=== PATIENT | male | born 1960 | race Caucasian/White ===

== ENCOUNTER 2016-05-19 15:55 | Inpatient (IN) | payer OTHER ==
[2016-05-19] MEDS ORDERED: Diltiazem DRIP* 100 MG/100 ML ADDV.BAG IVPB ONE (16:22)
[2016-05-19] MEDS ORDERED: Diltiazem IV* 5 MG/ML 5 ML VIAL (for loading dose/IV Push) (25 MG) IV PUSH ONE (16:22)
[2016-05-19] MEDS ORDERED: Aspirin Low Dose CHEW TAB* 81 MG PO ONE (16:22)
[2016-05-19] MEDS ORDERED: Magnesium Sulfate 2 GM IV* 2 GM/50 ML BAG IVPB ONE (16:27)
[2016-05-19] MEDS ORDERED: Thiamine IV* 100 MG, Folic Acid IV* 1 MG, Multiple Vitamin IV ADULT* 10 ML, Magnesium S... IV ONE ×5 (16:30)
[2016-05-19 16:53] LABS: Hematocrit 39 % (42-52); Hemoglobin 12.9 g/dl (14.0-18.0); Mean Corpuscular HGB Conc 33 g/dl (31-36); Mean Corpuscular Hemoglobin 33 pg (27-31); Mean Corpuscular Volume 99 fL (80-94); Mean Platelet Volume 7 um3 (7.4-10.4); Red Blood Count 3.93 10^6/ul (4.0-5.4); Red Cell Distribution Width 14 % (10.5-15); White Blood Count 5.3 10^3/ul (3.5-10.8)
[2016-05-19 17:09] LABS: ALT 11 U/L (7-52); AST 26 U/L (13-39); Albumin 4.1 g/dL (3.2-5.2); Alkaline Phosphatase 70 U/L (34-104); Anion Gap 7 mmol/L (2-11); BUN/Creatinine Ratio 22.9 (8-20); Blood Urea Nitrogen 25 mg/dL (6-24); CO2 Carbon Dioxide 26 mmol/L (22-32); Chloride 101 mmol/L (101-111); EGFR African American 89.4 (>60); EGFR Non-African American 69.5 (>60); Glucose 161 mg/dL (70-100); Magnesium 1.6 mg/dL (1.9-2.7); Sodium 134 mmol/L (133-145); Total Protein 7.1 g/dL (6.4-8.9)
--- NOTE | 2016-05-19 17:11 | RAD ---
INDICATION: CHF. COMPARISON: Comparison is made with a prior study from September 27, 2013. TECHNIQUE: A portable view of the chest was obtained. FINDINGS: Cardiac and mediastinal contours appear to be within normal limits. There is a transvenous cardiac pacemaker defibrillator present. The lungs are clear. No pleural effusion is seen. There is elevation of the right hemidiaphragm which is unchanged. IMPRESSION: NO EVIDENCE FOR ACUTE DISEASE.
[2016-05-19 17:20] LABS: Troponin I 0.07 ng/mL (<0.04)
[2016-05-19 17:34] LABS: Alcohol < 10 mg/dL (<10)
[2016-05-19 18:29] LABS: TSH (Thyroid Stimulating Horm) 0.77 mcIU/mL (0.34-5.60)
[2016-05-19] MEDS ORDERED: Acetaminophen TAB* 325 MG PO PRN (18:29)
[2016-05-19] MEDS ORDERED: Ondansetron INJ* 2 MG/ML VIAL IV PRN (18:29)
[2016-05-19] MEDS ORDERED: Potassium Chlor TAB* 20 MEQ TAB.ER PO ONE (18:29)
[2016-05-19] MEDS ORDERED: Diltiazem DRIP* 100 MG/100 ML ADDV.BAG IVPB SCH (19:00)
[2016-05-19] MEDS ORDERED: LORazepam TAB(*) 1 MG PO SCH (19:00)
[2016-05-19] MEDS ORDERED: Diltiazem TAB* 60 MG PO SCH (19:00)
[2016-05-19] MEDS ORDERED: Warfarin TAB(*) 5 MG PO ONE (19:30)
--- NOTE | 2016-05-19 19:57 | ED ---
Prince Baker Billy, scribed for Joe Dukes MD on 05/19/16 at 1620 . HPI Cardiac - HPI Summary HPI Summary: Patient is a 56 year-old male coming to [facility] after his AICD fired 4 times earlier today. 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 It also went off twice yesterday. Denies any chest pain, palpitations, SOB, or dizziness. Denies any LOC or head injury. He sees Dr. Morales for cardiology, but he has not seen her since last summer. He also has not taken his prescribed medication in several months, and has relapsed into drinking alcoholic tendencies. His last drink was last night. Denies any excess caffeine consumption. - History of Current Complaint Chief Complaint: EDGeneral Stated Complaint: ICD FIRING Time Seen by Provider: 05/19/16 16:15 Hx Obtained From: Patient Timing: Constant, Intermittent Initial Severity: Moderate Pain Intensity: 0 Character: Other: - AICD Aggravating Factor(s): Nothing Alleviating Factor(s): Nothing Associated Signs and Symptoms: Negative: Chest Pain, Dizziness, Shortness of Breath, Syncope, Lightheadedness, Palpitations - Allergy/Home Medications Allergies/Adverse Reactions: Allergies Allergy/AdvReac Type Severity Reaction Status Date / Time No Known Allergies Allergy Verified 09/27/13 15:30 PMH/Surg Hx/FS Hx/Imm Hx Cardiovascular History: Reports: Hx Auto Implanted Cardiovert Defib, Hx Pacemaker/ICD, Other Cardiovascular Problems/Disorders - Cardiomyopathy Denies: Hx Myocardial Infarction Sensory History: Reports: Hx Contacts or Glasses Opthamlomology History: Reports: Hx Contacts or Glasses - Surgical History Surgery Procedure, Year, and Place: ICD placement Hx Anesthesia Reactions: No Infectious Disease History: No Infectious Disease History: Denies: Traveled Outside the [place] in Last 30 Days - Family History Known Family History: Positive: Cardiac Disease, Other - prostate cancer - Social History Alcohol Use: Daily Substance Use Type: Reports: None Smoking Status (MU): Current Every Day Smoker Type: Cigarettes Review of Systems Negative: Palpitations, Chest Pain Negative: Shortness Of Breath All Other Systems Reviewed And Are Negative: Yes Physical Exam - Summary Physical Exam Summary: The patient is well-nourished in no acute distress and in no acute pain. The skin is warm and dry and skin color reflects adequate perfusion. Good skin turgor. HEENT: The head is normocephalic and atraumatic. The pupils are equal and reactive. The conjunctivae are clear and without drainage. Nares are patent and without drainage. Mouth reveals moist mucous membranes and the throat is without erythema and exudate. The external ears are intact. The ear canals are patent and without drainage. The tympanic membranes are intact. Neck is supple with full range of motion and non-tender. There are no carotid bruits. There is no neck vein distension. Respiratory: Chest is non-tender. Lungs are clear to auscultation and breath sounds are symmetrical and equal. Cardiovascular: Heart is tachycardic and irregular. There is no murmur or rub auscultated. There is no peripheral edema and pulses are symmetrical and equal. Abdomen: The abdomen is soft and non-tender. There are normal bowel sounds heard in all four quadrants and there is no organomegaly palpated. Musculoskeletal: There is no back pain noted. Extremities are non-tender with full range of motion. There is good capillary refill. There is no peripheral edema or calf tenderness elicited. Neurological: Patient is alert and oriented to person, place and time. The patient has symmetrical motor strength in all four extremities. Psychiatric: The patient has an appropriate affect and does not exhibit any anxiety or depression. Triage Information Reviewed: Yes Vital Signs On Initial Exam: Initial Vitals Temp Pulse Resp BP Pulse Ox 98.7 F 162 16 173/117 93 05/19/16 16:06 05/19/16 16:06 05/19/16 16:06 05/19/16 16:06 05/19/16 16:06 Vital Signs Reviewed: Yes Diagnostics - Vital Signs Vital Signs Temp Pulse Resp BP Pulse Ox 05/19/16 16:06 98.7 F 162 16 173/117 93 - Laboratory Lab Results: Lab Results 05/19/16 05/19/16 05/19/16 Range/Units 16:40 16:40 16:40 WBC 5.3 (3.5-10.8) 10^3/ul RBC 3.93 L (4.0-5.4) 10^6/ul Hgb 12.9 L (14.0-18.0) g/dl Hct 39 L (42-52) % MCV 99 H (80-94) fL MCH 33 H (27-31) pg MCHC 33 (31-36) g/dl RDW 14 (10.5-15) % Plt Count 169 (150-450) 10^3/ul MPV 7 L (7.4-10.4) um3 Neut % (Auto) 75.0 (38-83) % Lymph % (Auto) 14.0 L (25-47) % [place] % (Auto) 10.1 H (1-9) % Eos % (Auto) 0.2 (0-6) % Baso % (Auto) 0.7 (0-2) % Absolute Neuts (auto) 3.9 (1.5-7.7) 10^3/ul Absolute Lymphs (auto) 0.7 L (1.0-4.8) 10^3/ul Absolute Monos (auto) 0.5 (0-0.8) 10^3/ul Absolute Eos (auto) 0 (0-0.6) 10^3/ul Absolute Basos (auto) 0 (0-0.2) 10^3/ul Absolute Nucleated RBC 0 10^3/ul Nucleated RBC % 0.1 INR (Anticoag Therapy) (0.89-1.11) Sodium 134 (133-145) mmol/L Potassium 4.0 (3.5-5.0) mmol/L Chloride 101 (101-111) mmol/L Carbon Dioxide 26 (22-32) mmol/L Anion Gap 7 (2-11) mmol/L BUN 25 H (6-24) mg/dL Creatinine 1.09 (0.67-1.17) mg/dL Est GFR ( Amer) 89.4 (>60) Est GFR (Non-Af Amer) 69.5 (>60) BUN/Creatinine Ratio 22.9 H (8-20) Glucose 161 H (70-100) mg/dL Lactic Acid 1.4 (0.5-2.0) mmol/L Calcium 9.0 (8.6-10.3) mg/dL Magnesium 1.6 L (1.9-2.7) mg/dL Total Bilirubin 0.60 (0.2-1.0) mg/dL AST 26 (13-39) U/L ALT 11 (7-52) U/L Alkaline Phosphatase 70 (34-104) U/L CK-MB (CK-2) 6.2 (0.6-6.3) ng/mL Troponin I 0.07 H* (<0.04) ng/mL B-Natriuretic Peptide ( - 100) pg/mL Total Protein 7.1 (6.4-8.9) g/dL Albumin 4.1 (3.2-5.2) g/dL Globulin 3.0 (2-4) g/dL Albumin/Globulin Ratio 1.4 (1-3) TSH 0.77 (0.34-5.60) mcIU/mL Serum Alcohol < 10 (<10) mg/dL 05/19/16 05/19/16 Range/Units 16:40 16:40 WBC (3.5-10.8) 10^3/ul RBC (4.0-5.4) 10^6/ul Hgb (14.0-18.0) g/dl Hct (42-52) % MCV (80-94) fL MCH (27-31) pg MCHC (31-36) g/dl RDW (10.5-15) % Plt Count (150-450) 10^3/ul MPV (7.4-10.4) um3 Neut % (Auto) (38-83) % Lymph % (Auto) (25-47) % [place] % (Auto) (1-9) % Eos % (Auto) (0-6) % Baso % (Auto) (0-2) % Absolute Neuts (auto) (1.5-7.7) 10^3/ul Absolute Lymphs (auto) (1.0-4.8) 10^3/ul Absolute Monos (auto) (0-0.8) 10^3/ul Absolute Eos (auto) (0-0.6) 10^3/ul Absolute Basos (auto) (0-0.2) 10^3/ul Absolute Nucleated RBC 10^3/ul Nucleated RBC % INR (Anticoag Therapy) 0.97 (0.89-1.11) Sodium (133-145) mmol/L Potassium (3.5-5.0) mmol/L Chloride (101-111) mmol/L Carbon Dioxide (22-32) mmol/L Anion Gap (2-11) mmol/L BUN (6-24) mg/dL Creatinine (0.67-1.17) mg/dL Est GFR ( Amer) (>60) Est GFR (Non-Af Amer) (>60) BUN/Creatinine Ratio (8-20) Glucose (70-100) mg/dL Lactic Acid (0.5-2.0) mmol/L Calcium (8.6-10.3) mg/dL Magnesium (1.9-2.7) mg/dL Total Bilirubin (0.2-1.0) mg/dL AST (13-39) U/L ALT (7-52) U/L Alkaline Phosphatase (34-104) U/L CK-MB (CK-2) (0.6-6.3) ng/mL Troponin I (<0.04) ng/mL B-Natriuretic Peptide 55 ( - 100) pg/mL Total Protein (6.4-8.9) g/dL Albumin (3.2-5.2) g/dL Globulin (2-4) g/dL Albumin/Globulin Ratio (1-3) TSH (0.34-5.60) mcIU/mL Serum Alcohol (<10) mg/dL Result Diagrams: 05/19/16 16:40 05/19/16 16:40 Lab Statement: Any lab studies that have been ordered have been reviewed, and results considered in the medical decision making process. - Radiology CXR Xray Interpretation: No Acute Changes Radiology Interpretation Completed By: Radiologist - EKG 1614 EKG Interpretation: afib 158 bpm with RVR, normal axis, nonspecific ST changes Disposition - Course Assessment/Plan: 56 y/o male coming to the ED after his AICD went off 4 times today. CXR shows no acute pathology. EKG shows afib 158 bpm with RVR, normal axis, nonspecific ST changes. Case discussed with Dr. Herrera, who accepted the patient for admission. - Differential Dx - Cardiopulmonary Differential Diagnoses - Cardiopulmonary: Acute Coronary, Atrial Fibrillation, Cardiomyopathy, CHF, Myocardial Infarction, Other - hypomagnesium - Diagnoses Provider Diagnoses: Atrial fibrillation with RVR, AICD discharge, Alcohol abuse - Physician Notifications Discussed Care Of Patient With: Dr. Herrera (hospitalist) @ 1800: accepts admission. - Critical Care Time Critical Care Time: 30-74 min - 30 minutes Discharge - Discharge Plan Condition: Stable Disposition: ADMITTED TO [facility] Referrals: Roopa Ravi MD [Primary Care Provider] - The documentation as recorded by the Prince carrero Billy accurately reflects the service I personally performed and the decisions made by me, Joe Dukes MD.
[2016-05-19 22:16] LABS: Troponin I 0.33 ng/mL (<0.04)
[2016-05-19] MEDS: Amiodarone TAB* 200 MG PO SCH (23:09)
[2016-05-19] MEDS: Metoprolol Succinate XL TAB* 50 MG PO SCH (23:11)
--- NOTE | 2016-05-19 23:31 | HP ---
HISTORY AND PHYSICAL: DATE OF ADMISSION: 05/19/16 PRIMARY CARE PROVIDER: Dr. Ravi. ATTENDING PHYSICIAN WHILE IN THE HOSPITAL: Dr. Westley Herrera* (report dictated by Adiel Menchaca, SINDHU). CHIEF COMPLAINT: Defibrillator fired. HISTORY OF PRESENT ILLNESS: Mr. Lopez is a 56-year-old male patient who comes into the ER today with complaints of having his defibrillator fired about 4 times. He says over the last month, he is not taking any of his medications. He has history of AFib, cardiomyopathy, CAD, hyperlipidemia, hypertension, and history of CHF. He says that over the last year, he relapsed and has been drinking alcohol heavily. He has been drinking upwards of a 12 pack of beer a day. He says that he was sober prior to this for several years. Unfortunately , he had a relapse. He states that his defibrillator has been firing last week as well, but today it fired 4 times in a row, so he came in. He had no chest pain. He had no loss of consciousness. He had no shortness of breath. He had no abdominal pain. There has been no recent nausea or vomiting. He says he has had cold symptoms for the last couple of weeks, has not gotten any worse. He says that he actually feels a little bit better now. He denies any shortness of breath or any fevers. He came into the ER, was evaluated by Dr. Dukes. He was found with an AFib with RVR. Hospitalist service was asked to evaluate for admission. PAST MEDICAL HISTORY: Significant for: 1. AFib. 2. Cardiomyopathy, the last EF that I have access to was around 50% to 55%. 3. History of coronary artery disease. 4. Hyperlipidemia. 5. Hypertension. 6. CHF. PAST SURGICAL HISTORY: He has had ICD placement and cardiac catheterization. HOME MEDICATIONS: According to what he was last taking, and he has not taken this in again about a month, includes: 1. Coumadin 2 to 10 mg p.o. daily. 2. Multivitamin 1 tablet daily. 3. D3 2000 units p.o. daily. 4. Zetia 5 mg daily. 5. Pravachol 40 mg daily. 6. Cordarone 200 mg daily. 7. Metoprolol 50 mg daily. 8. Lisinopril 2.5 mg daily. ALLERGIES: To medications include no known drug allergies. FAMILY HISTORY: His mother had a history of CAD and a valve repair. His father had a history of prostate cancer. SOCIAL HISTORY: He does smoke. He has been smoking about a pack to half a pack a day when he has been drinking. He has been drinking about 12 pack to a 6 pack a day for the last year. Denies any recreational drug abuse. He is . His surrogate decision maker is his father. REVIEW OF SYSTEMS: There is no documented fever. He denied having any significant weight change. There was no double vision. There is no ear discharge. He denies having any rhinorrhea currently. He does admit to having sore throat and a cough, but there is no shortness of breath. No abdominal pain. No nausea, no vomiting. No dysuria. No frequency. There was no loss of conscious. No pruritus and no skin ulcerations. Review of 14 systems completed , all others were negative. PHYSICAL EXAMINATION GENERAL: At this time, Mr. Lopez is a 56-year-old male patient. He is sitting in the ER stretcher. He does not appear to be in any acute distress. VITAL SIGNS: Reveal blood pressure of 129/83, his pulse is 130, his heart rate now is right around 100. His respirations are 18, O2 sat 99%, temperature 98.7. HEENT: Head is atraumatic, normocephalic. Eyes: EOMs are intact. Sclerae anicteric and not pale. Throat: Oral mucosa appears to be moist. No oropharyngeal erythema. NECK: Supple. LUNGS: Clear to auscultation bilaterally. No wheezes, rales, or rhonchi. HEART: Sounds S1, S2. Regular rate and rhythm. No murmurs, rubs, or gallops. ABDOMEN: Soft, it was flat, nontender. Bowel sounds were present. EXTREMITIES: Pulses were 2+ throughout. He is able to move all 4 extremities with 5/5 strength. NEUROLOGIC: The patient is awake, he is alert, he is oriented x3. Tongue midline. Transplant Immunologist were equal. No gross focal deficits. SKIN: Intact. LABORATORY DATA: WBC of 5.3, RBC of 3.93, hemoglobin 12.9, hematocrit of 39, and a platelet count of 169. INR was 0.97. Sodium 134, potassium 4.0, chloride 101, bicarb 26, BUN 25, creatinine 1.09, glucose 161, lactic 1.4, calcium 9.0, mag 1.6, total bili 0.6, AST of 26, ALT 11 , alk phos 70, CK 6.2, troponin 0.07, BNP 55, albumin of 4.1. Toxicology was negative. He had an EKG obtained today, which showed atrial fibrillation with a rate of 158. He had diffuse depression. I reviewed previous EKG from September 2013, that was a sinus rhythm once he converted. When reviewed to the one when he was in atrial fibrillation, it appears to be similar. Old medical records were reviewed. ASSESSMENT AND PLAN: Mr. Lopez is a 56-year-old male patient coming into the ER today with complaints of defibrillator firing. On evaluation, he was found to be in AFib with RVR. He will be admitted under observation status for: 1. AFib with RVR. At this point, I did touch base with Cardiology. Because of the alcohol, we do not know when this started. The plan will be try to strive for rate control and anticoagulation, and continuing him back on his metoprolol XL, his amiodarone which he was taking, and I started him on heparin drip with a bridge to Coumadin, which we start per pharmacy protocol, and we will continue to monitor. Should we have difficulty with rate control, we will get Cardiology back involved. He is on a diltiazem drip and his heart rate is hovering around the 90s. 2. Cardiomyopathy. Get him back on his lisinopril and beta-phani. 3. CAD. At this point, we will go ahead and continue his meds as prescribed. 4. Indeterminate troponin. This is probably related to the fact that he was shocked 4 times a day. We will trend these and we will get an echo. 5. Hyperlipidemia. Continue meds and statin therapy. 6. Hypertension. Continue meds as prescribed. 7. CHF. Does not appear to be in acute failure. We will continue to follow. 8. ETOH abuse. He will be on a [place] protocol. Social Work consult placed. 9. DVT prophylaxis. He will be on a heparin drip. 10. Fluids, electrolytes, nutrition. He will be on a heart healthy diet. 11. Code status. He is a full code. TIME SPENT: Time spent on this admission was 60 minutes, greater than half the time was spent [id number] with the patient, obtaining my history and physical , the other half the time was spent going over the plan of care with patient and implementing plan of care. I did discuss the plan of care with my attending, Dr. Herrera; he is in agreement. ADIEL MENCHACA NP CC: Dr. Roopa Ravi; Dr. Morales* [id number]/CPS #: [id number] MTDD
[2016-05-19] MEDS: Heparin VIAL(*) 5000 UNITS/ML VIAL (FIVE THOUSAND) IV SCH (23:36)
[2016-05-19] MEDS: Heparin DRIP 25,000 UNITS(*) 25,000 UNITS/500 ML BAG IVPB SCH (23:38)
[2016-05-20 04:30] LABS: Urine Bacteria 1+ (Absent); Urine Bilirubin Negative (Negative); Urine Glucose 1+(50 mg/dL) (Negative); Urine Nitrite Negative (Negative)
[2016-05-20 06:58] LABS: Hematocrit 39 % (42-52); Hemoglobin 13.1 g/dl (14.0-18.0); Mean Corpuscular HGB Conc 34 g/dl (31-36); Mean Corpuscular Hemoglobin 34 pg (27-31); Mean Corpuscular Volume 99 fL (80-94); Mean Platelet Volume 7 um3 (7.4-10.4); Red Blood Count 3.93 10^6/ul (4.0-5.4); Red Cell Distribution Width 13 % (10.5-15); White Blood Count 5.7 10^3/ul (3.5-10.8)
[2016-05-20 07:13] LABS: Calcium 8.8 mg/dL (8.6-10.3); EGFR Non-African American 82.4 (>60); Potassium 3.7 mmol/L (3.5-5.0)
[2016-05-20] MEDS: Aspirin EC Low Dose* 81 MG TAB.EC PO SCH (10:59)
[2016-05-20] MEDS: Thiamine TAB* 100 MG TAB PO SCH (10:59)
[2016-05-20] MEDS: Amiodarone TAB* 200 MG PO SCH (10:59)
[2016-05-20] MEDS: Metoprolol Succinate XL TAB* 50 MG PO SCH ×2 (10:59→22:42)
[2016-05-20] MEDS: Atorvastatin* 10 MG TAB PO SCH (10:59)
[2016-05-20] MEDS: Lisinopril TAB* 5 MG PO SCH (10:59)
[2016-05-20] MEDS: Folic Acid TAB* 1 MG PO SCH (10:59)
[2016-05-20] MEDS: Multivitamins/Minerals TAB PO SCH (10:59)
--- NOTE | 2016-05-20 13:19 | ECHO ---
Patient: TEE ROCK [facility] Rec#: [id number] : 1960 Date: 05/20/2016 Age: 56y Height: 177.8 cm / 70.0 in Weight: 90.72 kg / 199.9 lbs Sex: M BSA: 2.09 Room#: 433 Admit Date#: 05/19/2016 Type: Inpatient Referring: Adiel Menchaca NP Reading: Leon Mata DO Product Development Director: Dolly Romeo RDCS CC: Roopa Ravi MD CC: Kusum Morales MD Transthoracic Echocardiogram Indication: A-fib BP: 135/79 HR: 79 Rhythm: A-Fib Findings History: Smoker,ETOH use,cardiomyopathy,a-fib,s/p AICD implant( fired 4 times prior to this admission),HTN,CAD,HLD,CHF, recent noncompliance with meds. Technical Comments: The study is technically limited due to the patient's smoking history. Completed at 0910. Left Ventricle: The left ventricular chamber size is normal. Mild concentric left ventricular hypertrophy is observed. There is diffuse global hypokinesis of the left ventricle. There is mild to moderately decreased left ventricular systolic function. The estimated ejection fraction is 35-40%. The assessment of diastolic function is non-diagnostic. Left Atrium: The left atrium is moderately dilated. Right Ventricle: The right ventricle is mildly dilated. The right ventricular global systolic function is mildly to moderately reduced. A pacemaker wire is visualized in the right ventricle. Right Atrium: The right atrium is moderately dilated. A pacemaker wire is visualized in the right atrium. Aortic Valve: The aortic valve is trileaflet. There is no evidence of aortic regurgitation. There is no evidence of aortic stenosis. Mitral Valve: Mild mitral annular calcification present. The mitral valve leaflets are mildly thickened. There is mild mitral regurgitation. Tricuspid Valve: The tricuspid valve leaflets are normal. There is mild tricuspid regurgitation. There is evidence of mild pulmonary hypertension. Pulmonic Valve: The pulmonic valve appears normal. There is no evidence of pulmonic regurgitation. There is no pulmonic stenosis. Pericardium: The pericardium appears normal. There is no significant pericardial effusion. Aorta: There is no dilatation of the ascending aorta. There is no dilatation of the aortic arch. There is no dilation of the aortic root. Pulmonary Artery: The main pulmonary artery is not well visualized. Venous: The venous system is not well visualized. Conclusions Patient appears to be in atrial fibrillation at time of study. The left ventricular chamber size is normal. Mild concentric left ventricular hypertrophy is observed. There is diffuse global hypokinesis of the left ventricle. There is mild to moderately decreased left ventricular systolic function. The estimated ejection fraction is 35-40%. The left atrium is moderately dilated. The right ventricle is mildly dilated. The right ventricular global systolic function is mildly to moderately reduced. A pacemaker/icd wire is visualized in the right ventricle. The right atrium is moderately dilated. There is mild tricuspid regurgitation. There is evidence of mild pulmonary hypertension. Compared to prior study from 09/2013, the LVEF is now reduced (was 50-55% previously), the LA and RA are now moderately dilated (both were normal previously). Measurements Name Value Normal Range RVIDd (AP) 2D 4.1 cm (0.9 - 2.6) RVDdMajor (2D) 4.1 cm (2.2 - 4.4) RAd ISD 4CH 5.9 cm (3.4 - 4.9) RA (A4C)W 5.2 cm (2.9 - 4.6) IVSd (2D) 1.1 cm (0.6 - 1) LVPWd (2D) 1.1 cm (0.6 - 1) LVIDd (2D) 4.6 cm (3.6 - 5.4) LVIDs (2D) 3.8 cm - LV FS (2D) 17 % (25 - 45) Aortic Annulus 2.3 cm (1.4 - 2.6) Ao root diameter (2D) 3.5 cm (2.1 - 3.5) Ascending Ao 3.2 cm (2.1 - 3.4) Aortic arch 3.1 cm (1.8 - 3.4) Descending Ao 0.3 cm - LA dimension (AP) 2D 4.7 cm (2.3 - 3.8) LAd ISD 4CH 5.2 cm (2.9 - 5.3) LA ISD 4CH W 4.2 cm (2.5 - 4.5) Name Value Normal Range LA ESV SP 4CH (A/L) 62 ml - LA ESV SP 2CH (A/L) 74 ml - LA ESV BP (A/L) 75 ml - LA ESV BP (A/L) index 36 ml/m2 - LA ESV SP 4CH (MOD) 56 ml - LA ESV SP 2CH (MOD) 71 ml - Name Value Normal Range MV E-wave Vmax 0.7 m/sec - MV deceleration time 231 msec - LV septal e' Vmax 0.1 m/sec - LV lateral e' Vmax 0.12 m/sec - LV E:e' septal ratio 7 ratio - LV E:e' lateral ratio 5.83 ratio - Name Value Normal Range AV Vmax 0.8 m/sec - AV VTI 16 cm - AV peak gradient 2.7 mmHg - AV mean gradient 1.45 mmHg - LVOT Vmax 0.7 m/sec - LVOT VTI 13.4 cm - LVOT peak gradient 2.01 mmHg - LVOT mean gradient 0.97 mmHg - Name Value Normal Range TR Vmax 2.6 m/sec - TR peak gradient 28 mmHg - RAP 8 mmHg - RVSP 36 mmHg - Name Value Normal Range PV Vmax 0.5 m/sec - PV peak gradient 0.95 mmHg -
--- NOTE | 2016-05-20 15:38 | CONSULT ---
Subjective Date of Service: 05/20/16 Interval History: Admission Date: 05/19/2016 Consult date: 05/20/2016 Dehydration Unit Operator: Kusum Morales MD PMD: Dr. Ravi Service: Hospitalist/Dr. Dorsey. CC: defibrillator shock REASON FOR CONSULTATION: Atrial fibrillation and defibrillator shock. HISTORY OF PRESENT ILLNESS: Mr. Lopez is a 56-year-old man with a history of coronary artery disease; alcohol use, fluctuating mixed cardiomyopathy (has normalized in past with medical therapy last LVEF 09/2013 had LVEF 50-55%) paroxysmal atrial fibrillation , ICD with prior inappropriate ICD firings. Last cardiology visit was 09/2015. He has not taken any medications for the past month and has relapsed back into alcoholism over the last year drinking up to 12 beers a day. He has had no exertional chest pain, dyspnea, edema or orthopnea or syncope. Several times prior to ICD shocking he could feel some something was weird left lower chest area ? if these were the ventricular episodes or possibly he was feeling failed ATP. 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 He was in NSR 09/2015 unsure from this device AFib burden Device interogation shows inappropriate ICD discharges for rapid atrial fibrillation may with HR > 200 bpm 04/03/2016 04/05/2016 05/04/2016 05/10/2016 05/13/2016 05/17/2016 05/18/2016 05/19/2016 Later in day 05/18/2016 and 05/19/2016 patient received what appears to be probable appropriate ICD discharges for VT/VT with HR > 200 bpm Surgical hx AICD mplanted in November of 2011 ([employer] device). ALLERGIES: To medications include no known drug allergies. FAMILY HISTORY: His mother had a history of CAD and a valve repair. His father had a history of prostate cancer. SOCIAL HISTORY: He does smoke. He has been smoking about a pack to half a pack a day when he has been drinking. He has been drinking about 12 pack to a 6 pack a day for the last year. Denies any recreational drug abuse. He is . His surrogate decision maker is his father. MEDICATION list as of 09/2015 Amiodarone 200 mg PO daily coumadin Lisinopril 2.5 mg a day. Toprol 50 mg bid Pravastatin 40 mg PO daily Zetia 1/2 tablet by mouth every day ALLERGIES: HE HAS NO KNOWN DRUG ALLERGIES. FAMILY HISTORY: Father has a history of prostate cancer. Mother has a history of coronary artery disease. SOCIAL HISTORY: The patient works at the [employer]. He continues to smoke cigarettes. Medications Active Medications: Acetaminophen (Tylenol Tab*) 650 mg PO Q4H PRN PRN Reason: FEVER/PAIN Amiodarone HCl (Cordarone Tab*) 200 mg PO BID [facility] Last Admin: 05/20/16 10:59 Dose: 200 mg Aspirin (Aspirin Ec Low Dose*) 81 mg PO DAILY [facility] Last Admin: 05/20/16 10:59 Dose: 81 mg Atorvastatin Calcium (Lipitor*) 10 mg PO DAILY [facility] PRN Reason: Protocol Last Admin: 05/20/16 10:59 Dose: 10 mg Ezetimibe (Zetia Tab*) 5 mg PO QPM [facility] Folic Acid (Folvite Tab*) 1 mg PO DAILY [facility] Last Admin: 05/20/16 10:59 Dose: 1 mg Heparin Sodium (Porcine) (Heparin Vial(*)) 0 units IV .PER PROTOCOL [facility] PRN Reason: Protocol Last Admin: 05/19/16 23:36 Dose: 6,750 units Heparin Sodium/Dextrose (Heparin Drip 25,000 Units(*)) 25,000 units in 500 mls @ 0 mls/hr IVPB .PER RATE [facility]; Per Protocol PRN Reason: Protocol Last Admin: 05/19/16 23:38 Dose: 25 mls/hr Lisinopril (Prinivil Tab*) 2.5 mg PO DAILY [facility] Last Admin: 05/20/16 10:59 Dose: 2.5 mg Lorazepam (Ativan Tab(*)) 0 mg PO .PER WAM SCORE [facility] PRN Reason: Protocol Metoprolol Succinate (Toprol Xl Tab*) 50 mg PO BID [facility] Last Admin: 05/20/16 10:59 Dose: 50 mg Multivitamins/Minerals (Theragran/Minerals Tab*) 1 tab PO DAILY [facility] Last Admin: 05/20/16 10:59 Dose: 1 tab Ondansetron HCl (Zofran Inj*) 4 mg IV Q6H PRN PRN Reason: NAUSEA Pharmacy Profile Note (Coumadin Per Pharmacy*) 1 note FOLLOW UP .PER PHARMACY PROTOC [facility] PRN Reason: Protocol Thiamine HCl (Vitamin B-1 Tab*) 100 mg PO DAILY [facility] Last Admin: 05/20/16 10:59 Dose: 100 mg Warfarin Sodium (Coumadin Tab(*)) 5 mg PO 1700 ONE Stop: 05/20/16 17:01 Home Medications: Ezetimibe TAB* [Zetia TAB*] 5 mg PO QPM 09/27/13 [History Confirmed 05/19/16] Lisinopril [Lisinopril 2.5 MG-] 2.5 mg PO DAILY 09/27/13 [History Confirmed ] Warfarin TAB(*) [Coumadin TAB(*)] 2 - 10 mg PO QPM 09/27/13 [History Confirmed 05/19/16] Amiodarone TAB* [Cordarone TAB*] 200 mg PO BID 10/01/14 [History Confirmed 05/19] Cholecalciferol [Vitamin D3] 2,000 unit PO DAILY 10/01/14 [History Confirmed ] Metoprolol Succinate XL TAB* [Toprol XL TAB*] 50 mg PO BID 05/19/16 [History Confirmed 05/19/16] Multivitamins/Minerals TAB* [Theragran/minerals TAB*] 1 tab PO DAILY 05/19/16 [ History Confirmed 05/19/16] Pravastatin (NF) [Pravachol (NF)] 40 mg PO DAILY 05/19/16 [History Confirmed ] Review of Systems - Measurements Intake and Output: Intake and Output Last 24 Hours 05/18/16 05/19/16 05/20/16 05/21/16 06:59 06:59 06:59 06:59 Intake Total 217 760 Output Total 800 500 Balance -583 260 Weight 177 lb 6 oz Intake: IV Fluids 131 Medicated IV 86 Heparin Drip 86 Oral 0 760 Output: Urine 800 500 Other: # Bowel Movements 0 # Voids 2 - Review of Systems Review of Systems Statement: All other review of systems negative, unless stated above. Objective Vital Signs: Temp Pulse Resp BP Pulse Ox 98.1 F 67 20 112/85 98 05/20/16 11:19 05/20/16 11:19 05/20/16 11:19 05/20/16 11:19 05/20/16 11:19 Appearance: nad, pleasant Ears/Nose/Mouth/Throat: Clear Oropharnyx, Mucous Membranes Moist Neck: NL Appearance and Movements; NL JVP, Trachea Midline Respiratory: Symmetrical Chest Expansion and Respiratory Effort, Clear to Auscultation Cardiovascular: No Edema, - - irregularly irregular, no significant murmur, icd pocket intact Abdominal: NL Sounds; No Tenderness; No Distention Extremities: No Edema Skin: No Nodules or Sclerosis Neurological: Alert and Oriented x 3 Laboratory Results: 05/20/16 06:40 05/20/16 06:40 INR (Anticoag Therapy) 1.02 (0.89-1.11) 05/20/16 06:40 APTT 147.7 seconds (26.0-36.3) H* 05/20/16 08:45 Total Bilirubin 0.60 mg/dL (0.2-1.0) 05/19/16 16:40 AST 26 U/L (13-39) 05/19/16 16:40 ALT 11 U/L (7-52) 05/19/16 16:40 Alkaline Phosphatase 70 U/L (34-104) 05/19/16 16:40 CK-MB (CK-2) 6.2 ng/mL (0.6-6.3) 05/19/16 16:40 B-Natriuretic Peptide 55 pg/mL (-100) 05/19/16 16:40 Total Protein 7.1 g/dL (6.4-8.9) 05/19/16 16:40 Albumin 4.1 g/dL (3.2-5.2) 05/19/16 16:40 Globulin 3.0 g/dL (2-4) 05/19/16 16:40 Albumin/Globulin Ratio 1.4 (1-3) 05/19/16 16:40 TSH 0.77 mcIU/mL (0.34-5.60) 05/19/16 16:40 05/19/16 05/20/16 21:40 00:55 Troponin I 0.33 H* 0.29 H* Diagnostic Imaging: Cardiomyopathy, echocardiogram, July 23, 2012, ejection fraction of 45%, right ventricular enlargement and hypokinesis and mild tricuspid insufficiency (ejection fraction improved from 35% in 2011), cardiac catheterization done at [facility] in July of 2009 revealed a 90% proximal LAD occlusion, 40% occlusion of the first OM of the circumflex and the right coronary artery had moderate disease of 50% occlusion. He had a bare-metal stent deployed to the LAD lesion at that time. TTE this admission 05/20/2016: LVEF 35-40%, global hypokinesis, moderate LA dilation, RV mildly dilated with mild-mod RV dysfunction, no significant valvular abnormalities noted CXR 05/19/2016: No acute disease EKG 09/2015: NSR, borderline 1AVB otherwise normal ekg ekg 05/19/2016: Rapid Afib 160 bpm, no ischemic changes EKG 05/20/2016: Rate controlled atrial fibrillation 75 bpm, otherwise normal ekg Assessment/Plan Mr. Lopez is a 56-year-old man with a history of coronary artery disease s /p PCI/BMS (no [place]), fluctuating mixed cardiomyopathy (has normalized in past with medical therapy last LVEF 09/2013 had LVEF 50-55%), paroxysmal atrial fibrillation, ICD with prior inappropriate ICD firings in the past admitted with recurrent ICD firings in the setting of medication non-adherence and alcohol relapse, LVEF 35-40% currently. - It is absolutely critical that patient refrain from further alcohol use and take all medications exactly as prescribed, failure to do this could result in things including but not limited to even in the short term. We discussed this and patient expressed understanding. - Elevated troponin likely from multiple ICD firings, there are no anginal symptoms or ischemic ekg changes to suggest a type 1 plaque disruption UT - Continue aspirin until INR therapeutic with warfarin and then would d/c aspirin. He has stable CAD and I think long-term risk of bleeding with this regimen would outweigh benefits especially with heavy alcohol use history. He does not need bridged as an outpatient but reasonable to change the heparin gtt to therapeutic lovenox while inpatient. - Continue prior statin regimen - Agree with restarting toprol 50 mg PO BID - Change amiodarone to 400 mg PO TID (ordered) while inpatient, at discharge change to 200 mg PO BID x 7 days then 200 mg PO daily until follows up - Continue AceI I think his LVEF will again recover with medical therapy and alcohol cessation. I think the probable VT/VF was at least in patient due to the pro-arrhythmic effect of inappropriate ICD firing (and contribution to cardiomyopathy among other things such as alcohol and rapid atrial fibrillation itself). It may also be reasonable for him to undergo an outpatient stress test at the direction of Dr. Morales once he is further stable to evaluate for an ischemic contribution. The probable VT/VT rates are similar to the Afib rates mostly both over 200 bpm so changing VT/VT rate zones likely will not be helpful. The % discriminators and detection intervals before delivering therapy were adjusted for better discrimination. It may be worth considering if placing an atrial lead would provide even better discrimination (particularly if this approach were to fail) . Given prior inappropriate ICD firings and recurrent cardiomyopathy related to at least in part probable atrial fibrillation, it may also be worth considering an AV kashif ablation along with at BiV pacemaker as a last resort. Thank you for allowing me to participate in the cardiovascular care of this patient. Please do not hesitate to contact me with questions or concerns.
[2016-05-20] MEDS ORDERED: Warfarin TAB(*) 5 MG PO ONE (17:00)
[2016-05-20] MEDS ORDERED: Ezetimibe TAB* 10 MG PO SCH (18:00)
[2016-05-20] MEDS: Amiodarone TAB* 400 MG PO SCH ×2 (18:27→22:42)
--- NOTE | 2016-05-20 21:40 | PN ---
Subjective Date of Service: 05/20/16 Interval History: . denies chest pain limited evidence of withdrawal - but acknowledged at high risk. Family History: Unchanged from Admission Social History: Unchanged from Admission Past Medical History: Unchanged from Admission Objective Active Medications: . Acetaminophen (Tylenol Tab*) 650 mg PO Q4H PRN PRN Reason: FEVER/PAIN Amiodarone HCl (Cordarone Tab*) 400 mg PO TID [facility] Last Admin: 05/20/16 18:27 Dose: 400 mg Aspirin (Aspirin Ec Low Dose*) 81 mg PO DAILY [facility] Last Admin: 05/20/16 10:59 Dose: 81 mg Atorvastatin Calcium (Lipitor*) 10 mg PO DAILY [facility] PRN Reason: Protocol Last Admin: 05/20/16 10:59 Dose: 10 mg Ezetimibe (Zetia Tab*) 5 mg PO QPM [facility] Last Admin: 05/20/16 17:55 Dose: 5 mg Folic Acid (Folvite Tab*) 1 mg PO DAILY [facility] Last Admin: 05/20/16 10:59 Dose: 1 mg Heparin Sodium (Porcine) (Heparin Vial(*)) 0 units IV .PER PROTOCOL [facility] PRN Reason: Protocol Last Admin: 05/19/16 23:36 Dose: 6,750 units Heparin Sodium/Dextrose (Heparin Drip 25,000 Units(*)) 25,000 units in 500 mls @ 0 mls/hr IVPB .PER RATE [facility]; Per Protocol PRN Reason: Protocol Last Admin: 05/19/16 23:38 Dose: 25 mls/hr Lisinopril (Prinivil Tab*) 2.5 mg PO DAILY [facility] Last Admin: 05/20/16 10:59 Dose: 2.5 mg Lorazepam (Ativan Tab(*)) 0 mg PO .PER WAM SCORE [facility] PRN Reason: Protocol Metoprolol Succinate (Toprol Xl Tab*) 50 mg PO BID [facility] Last Admin: 05/20/16 10:59 Dose: 50 mg Multivitamins/Minerals (Theragran/Minerals Tab*) 1 tab PO DAILY [facility] Last Admin: 05/20/16 10:59 Dose: 1 tab Ondansetron HCl (Zofran Inj*) 4 mg IV Q6H PRN PRN Reason: NAUSEA Pharmacy Profile Note (Coumadin Per Pharmacy*) 1 note FOLLOW UP .PER PHARMACY PROTOC [facility] PRN Reason: Protocol Thiamine HCl (Vitamin B-1 Tab*) 100 mg PO DAILY [facility] Last Admin: 05/20/16 10:59 Dose: 100 mg Vital Signs 05/19/16 05/20/16 05/20/16 21:55 00:07 03:59 Temperature 98.1 F 98.4 F 98.1 F Pulse Rate 66 71 Respiratory 16 20 Rate Blood Pressure 135/79 103/61 (mmHg) O2 Sat by Pulse 96 98 Oximetry 05/20/16 05/20/16 05/20/16 07:30 11:19 15:31 Temperature 98.3 F 98.1 F 99.1 F Pulse Rate 63 67 74 Respiratory 18 20 18 Rate Blood Pressure 116/74 112/85 108/74 (mmHg) O2 Sat by Pulse 98 98 98 Oximetry Appearance: NAD Eyes: No Scleral Icterus Ears/Nose/Mouth/Throat: Clear Oropharnyx Neck: Trachea Midline Respiratory: Symmetrical Chest Expansion and Respiratory Effort Cardiovascular: NL Sounds; No Murmurs; No JVD Abdominal: NL Sounds; No Tenderness; No Distention Lymphatic: No Cervical Adenopathy Extremities: No Edema Skin: No Rash or Ulcers Neurological: Alert and Oriented x 3 Lines/Tubes/Other Access: Clean, Dry and Intact Peripheral IV Nutrition: Taking PO's Result Diagrams: 05/20/16 06:40 05/20/16 06:40 Assess/Plan/Problems-Billing . Assessment: 56 yo man with ICD firing in setting of med noncompliance and etoh withdrawal. Appreciate comprehensive cardiology consultation.
[2016-05-21] MEDS: Heparin DRIP 25,000 UNITS(*) 25,000 UNITS/500 ML BAG IVPB SCH ×2 (00:17→14:31)
[2016-05-21 06:25] LABS: Hematocrit 42 % (42-52); Hemoglobin 13.7 g/dl (14.0-18.0); Mean Corpuscular HGB Conc 33 g/dl (31-36); Mean Corpuscular Hemoglobin 33 pg (27-31); Mean Corpuscular Volume 99 fL (80-94); Mean Platelet Volume 8 um3 (7.4-10.4); Red Blood Count 4.21 10^6/ul (4.0-5.4); Red Cell Distribution Width 13 % (10.5-15); White Blood Count 6.1 10^3/ul (3.5-10.8)
[2016-05-21 06:39] LABS: BUN/Creatinine Ratio 13.6 (8-20); Calcium 9.1 mg/dL (8.6-10.3); EGFR African American 114.4 (>60); EGFR Non-African American 88.9 (>60); Magnesium 1.8 mg/dL (1.9-2.7); Potassium 3.8 mmol/L (3.5-5.0)
[2016-05-21] MEDS ORDERED: Magnesium Sulfate 2 GM IV* 2 GM/50 ML BAG IVPB ONE (08:52)
[2016-05-21] MEDS ORDERED: Potassium Chlor TAB* 20 MEQ TAB.ER PO ONE (08:52)
--- NOTE | 2016-05-21 08:58 | PN ---
Subjective Date of Service: 05/21/16 Interval History: f/u icd shocks, cardiomyopathy no chest pain or dyspnea tele: rate controlled atrial fibrillation Medications Active Medications: Acetaminophen (Tylenol Tab*) 650 mg PO Q4H PRN PRN Reason: FEVER/PAIN Amiodarone HCl (Cordarone Tab*) [address] [facility] Last Admin: 05/20/16 22:42 Dose: 400 mg Aspirin (Aspirin Ec Low Dose*) [address] [facility] Last Admin: 05/20/16 10:59 Dose: 81 mg Atorvastatin Calcium (Lipitor*) [address] [facility] PRN Reason: Protocol Last Admin: 05/20/16 10:59 Dose: 10 mg Ezetimibe (Zetia Tab*) [address] [facility] Last Admin: 05/20/16 17:55 Dose: 5 mg Folic Acid (Folvite Tab*) [address] [facility] Last Admin: 05/20/16 10:59 Dose: 1 mg Heparin Sodium (Porcine) (Heparin Vial(*)) 0 units IV .PER PROTOCOL [facility] PRN Reason: Protocol Last Admin: 05/19/16 23:36 Dose: 6,750 units Heparin Sodium/Dextrose (Heparin Drip 25,000 Units(*)) 25,000 units in 500 mls @ 0 mls/hr IVPB .PER RATE [facility]ON[facility]; Per Protocol PRN Reason: Protocol Last Admin: 05/21/16 00:17 Dose: 20 mls/hr Magnesium Sulfate (Magnesium Sulfate 2 Gm Iv*) 2 gm in 50 mls @ 50 mls/hr IVPB ONCE ONE Stop: 05/21/16 09:51 Lisinopril (Prinivil Tab*) 2.[address] [facility] Last Admin: 05/20/16 10:59 Dose: 2.5 mg Lorazepam (Ativan Tab(*)) 0 mg PO .PER WAM SCORE [facility] PRN Reason: Protocol Metoprolol Succinate (Toprol Xl Tab*) [address] [facility] Last Admin: 05/20/16 22:42 Dose: 50 mg Multivitamins/Minerals (Theragran/Minerals Tab*) [address] [facility] Last Admin: 05/20/16 10:59 Dose: 1 tab Ondansetron HCl (Zofran Inj*) 4 mg IV Q6H PRN PRN Reason: NAUSEA Pharmacy Profile Note (Coumadin Per Pharmacy*) 1 note FOLLOW UP .PER PHARMACY PROTOC [facility] PRN Reason: Protocol Potassium Chloride (Klor Con Er Tab*) 40 meq PO ONCE ONE Stop: 05/21/16 08:53 Thiamine HCl (Vitamin B-1 Tab*) 100 mg PO DAILY [facility] Last Admin: 05/20/16 10:59 Dose: 100 mg Objective Vital Signs: Temp Pulse Resp BP Pulse Ox 98.0 F 71 16 120/77 98 05/21/16 07:36 05/21/16 07:36 05/21/16 07:36 05/21/16 07:36 05/21/16 07:36 Appearance: nad, pleasant Ears/Nose/Mouth/Throat: Clear Oropharnyx, Mucous Membranes Moist Neck: NL Appearance and Movements; NL JVP, Trachea Midline Respiratory: Symmetrical Chest Expansion and Respiratory Effort, Clear to Auscultation Cardiovascular: No Edema, - - irregularly irregular, no significant murmur, icd pocket intact Abdominal: NL Sounds; No Tenderness; No Distention Extremities: No Edema Skin: No Nodules or Sclerosis Neurological: Alert and Oriented x 3 Laboratory Results: 05/21/16 05:57 05/21/16 06:04 INR (Anticoag Therapy) 0.98 (0.89-1.11) 05/21/16 06:04 APTT 71.1 seconds (26.0-36.3) H 05/21/16 06:04 Total Bilirubin 0.60 mg/dL (0.2-1.0) 05/19/16 16:40 AST 26 U/L (13-39) 05/19/16 16:40 ALT 11 U/L (7-52) 05/19/16 16:40 Alkaline Phosphatase 70 U/L (34-104) 05/19/16 16:40 CK-MB (CK-2) 6.2 ng/mL (0.6-6.3) 05/19/16 16:40 B-Natriuretic Peptide 55 pg/mL (-100) 05/19/16 16:40 Total Protein 7.1 g/dL (6.4-8.9) 05/19/16 16:40 Albumin 4.1 g/dL (3.2-5.2) 05/19/16 16:40 Globulin 3.0 g/dL (2-4) 03/16/17 16:40 Albumin/Globulin Ratio 1.4 (1-3) 05/19/16 16:40 TSH 0.77 mcIU/mL (0.34-5.60) 05/19/16 16:40 mg 1.8 05/19/16 05/20/16 21:40 00:55 Troponin I 0.33 H* 0.29 H* Diagnostic Imaging: Cardiomyopathy, echocardiogram, July 23, 2012, ejection fraction of 45%, right ventricular enlargement and hypokinesis and mild tricuspid insufficiency (ejection fraction improved from 35% in 2011), cardiac catheterization done at [facility] in July of 2009 revealed a 90% proximal LAD occlusion, 40% occlusion of the first OM of the circumflex and the right coronary artery had moderate disease of 50% occlusion. He had a bare-metal stent deployed to the LAD lesion at that time. TTE this admission 05/20/2016: LVEF 35-40%, global hypokinesis, moderate LA dilation, RV mildly dilated with mild-mod RV dysfunction, no significant valvular abnormalities noted CXR 05/19/2016: No acute disease EKG 09/2015: NSR, borderline 1AVB otherwise normal ekg ekg 05/19/2016: Rapid Afib 160 bpm, no ischemic changes EKG 05/20/2016: Rate controlled atrial fibrillation 75 bpm, otherwise normal ekg Assessment/Plan Mr. Lopez is a 56-year-old man with a history of coronary artery disease s /p PCI/BMS (no [place]), fluctuating mixed cardiomyopathy (has normalized in past with medical therapy last LVEF 09/2013 had LVEF 50-55%), paroxysmal atrial fibrillation, ICD with prior inappropriate ICD firings in the past admitted with recurrent ICD firings in the setting of medication non-adherence and alcohol relapse, LVEF 35-40% currently, device adjusted to try to better discriminate AFib from VT/VF to avoid inappropriate shocks, overall doing well, see original consult note for full details. - Continue aspirin until INR therapeutic with warfarin and then would d/c aspirin. He has stable CAD and I think detention risk of bleeding with both aspirin and anticoagulation regimen would outweigh benefits especially with heavy alcohol use history. He does not need bridged as an outpatient but reasonable to change the heparin gtt to therapeutic lovenox while inpatient. - Continue prior cholesterol regimen - Continue toprol 50 mg PO BID - Continue amiodarone to 400 mg PO TID while inpatient, at discharge change to 200 mg PO BID x 7 days then 200 mg PO daily until follows up - Continue AceI - Given 2 gram IV mg and 40 meq K this AM (ordered), goal Mg 2 or greater and K 4 or greater - Follow up with Dr. Morales for further evaluation and management Thank you for allowing me to participate in the cardiovascular care of this patient. Please do not hesitate to contact me with questions or concerns.
[2016-05-21] MEDS: Amiodarone TAB* 400 MG PO SCH ×2 (10:15→14:28)
[2016-05-21] MEDS: Thiamine TAB* 100 MG TAB PO SCH (10:15)
[2016-05-21] MEDS: Metoprolol Succinate XL TAB* 50 MG PO SCH (10:16)
[2016-05-21] MEDS: Folic Acid TAB* 1 MG PO SCH (10:16)
[2016-05-21] MEDS: Atorvastatin* 10 MG TAB PO SCH (10:16)
[2016-05-21] MEDS: Aspirin EC Low Dose* 81 MG TAB.EC PO SCH (10:16)
[2016-05-21] MEDS: Multivitamins/Minerals TAB PO SCH (10:16)
[2016-05-21] MEDS: Lisinopril TAB* 5 MG PO SCH (10:16)
[2016-05-21] MEDS: Heparin VIAL(*) 5000 UNITS/ML VIAL (FIVE THOUSAND) IV SCH (14:31)
[2016-05-21 15:44] VITALS: BP 104/69
[2016-05-21] MEDS ORDERED: Warfarin TAB(*) 7.5 MG PO ONE (17:00)
--- NOTE | 2016-05-22 13:55 | PN ---
Hospitalist Progress Note . HOSPITALIST DISCHARGE NOTE: See dc instructions and summary by me. Patient stable for dc dc instructions reviewed with the patient at the bedside. DC patient home today.
--- NOTE | 2016-05-23 04:29 | DS ---
DISCHARGE SUMMARY: DATE OF ADMISSION: 05/19/16 DATE OF DISCHARGE: 05/21/16 PRIMARY CARE PROVIDER: Roopa Ravi MD [employer] SUPERVISOR: Kusum Morales MD STATUS: Inpatient. PRINCIPAL DISCHARGE DIAGNOSIS: ICD firing in the setting of medical noncompliance and excessive alcohol use and also atrial fibrillation and cardiomyopathy. SECONDARY DIAGNOSES: 1. Chronic atrial fibrillation. 2. Cardiomyopathy with ejection fraction preserved at 50% to 55%. 3. Coronary artery disease. 4. Hyperlipidemia. 5. Hypertension. 6. Congestive heart failure. DISCHARGE MEDICATION REGIMEN: New medications: 1. Amiodarone 200 mg by mouth twice daily. 2. Metoprolol XL 50 mg by mouth twice daily. 3. Warfarin 4 mg by mouth daily or as instructed based on INR readings. 4. Folic acid 1 mg by mouth once daily. 5. Multivitamin 1 tab by mouth once daily. 6. Thiamine 100 mg by mouth daily. Continue: 1. Lisinopril 2.5 mg by mouth daily. 2. Zetia 5 mg by mouth at night. 3. Cholecalciferol 2000 units every day. 4. Pravastatin 40 mg by mouth daily. HISTORY OF PRESENT ILLNESS/HOSPITAL COURSE: Please see the H and P by Dr. Maurizio Herrera dictated by nurse practitioner, Adiel Menchaca. In brief, Mr. Lopez is a 56-year-old gentleman who came to the emergency room reporting his defibrillator fired approximately 4 times. He also confirmed that he has not been taking any of his medications over the past month. He has a notable history of atrial fibrillation, cardiomyopathy, coronary artery disease, hyperlipidemia, and hypertension as well as congestive heart failure. He has been also drinking alcohol heavily up to 12-pack of beer a day. He was previously sober for several years, but has suffered a relapse. The patient states that it fired last week once or twice, but when it fired 4 times in a row, he became concerned. The patient denies any loss of consciousness or shortness of breath. He states his current situation has been going on for a few weeks. In the emergency room, he was found to have atrial fibrillation with RVR and the hospitalist service was asked to evaluate the patient. The patient was admitted and placed on a WA protocol. He was also started on heparin drip and was bridged to Coumadin. He has taken Coumadin in the outpatient setting, but was subtherapeutic. The patient quickly was rate controlled and his medications were restarted. He was seen by Dr. Mata on 05/20/16. Device interrogation shows inappropriate ICD discharges for rapid atrial fibrillation with heart rates greater than 200 beats per minute on April 03, April 05, May 04, May 10, May 13, May 17, May 18, and May 19. The patient did have probable appropriate ICD discharges for V-tach and V-tach above 200 beats per minute on May 18 and May 19. The patient corroborated with the cariology team that he was indeed noncompliant with his medications and drinking in excess as stated above. The recommendations on 05/19/16 included loading the patient with amiodarone 400 mg by mouth 3 times daily and then discharging on 200 mg by mouth twice daily for 7 days and then down to 200 mg by mouth daily, which was done, also to continue his JOSE inhibitor and restarting Toprol 50 mg by mouth twice daily, which he was taking prior to this episode. He recommended continuing statin therapy and continuing aspirin until the INR becomes therapeutic and then to discontinue the aspirin. The patient is going to follow up with Dr. Morales to undergo an outpatient stress test. The patient has followup labs next week on 05/25/[address] Ravi and this is specifically for his INR management. I do not have experience with the required dosing and his INR will be used to re-dose his Coumadin. He was told to come back to the emergency room if he has any worsening symptoms including, but not limited to chest pain, lightheadedness, or shortness of breath. I spoke to the patient regarding potential alcohol rehab and he states that he does not wish to do this at this time and feels he can abstain without this. This would be a good point of conversation than the followup visits with both primary care and cardiology. TIME SPENT: Total time taken to discharge Mr. Lopez was 40 minutes; greater than half the time was spent going over the discharge instructions and explaining [id number] instructions to the patient directly and he said he will comply with this. CONDITION ON DISCHARGE: Stable. CC: Dr. Ravi; Dr. Morales* [id number]/[facility] #: [id number] [facility]
== END 2016-05-21 18:27 | disposition home or self-care (01) | DRG 309 ==
LOC: ED 15:55 → MEDTELE 18:27 → OBSVTOIN 20:15
PROVIDERS: ADMIT Internal Medicine; ATTEND Internal Medicine
DX: I48.91 Unspecified atrial fibrillation (principal); F10.239 Alcohol dependence with withdrawal, unspecified; I42.9 Cardiomyopathy, unspecified; I11.0 Hypertensive heart disease with heart failure; I27.2 Other secondary pulmonary hypertension; I50.9 Heart failure, unspecified; Z91.19 Patient's noncompliance with other medical treatment and regimen; I25.10 Atherosclerotic heart disease of native coronary artery without angina pectoris; E78.5 Hyperlipidemia, unspecified; F17.210 Nicotine dependence, cigarettes, uncomplicated; I07.1 Rheumatic tricuspid insufficiency; Z95.810 Presence of automatic (implantable) cardiac defibrillator; Z79.01 Long term (current) use of anticoagulants
CPT/HCPCS: 36415; 71010; 80048; 80053; 80320; 81003; 81015; 82553; 83605; 83735; 83880; 84443; 84484; 84520; 85025; 85610; 85730; 86703; 86803; 87086; 93005; 93306; 94760; 99406; A9270-GY; G0480; J1644; J3475; J7060